=== PATIENT | female | born 1930 | race Caucasian/White ===

== ENCOUNTER 2019-07-30 12:34 | Outpatient (CLI) | payer MEDICARE, OTHER ==
--- NOTE | 2019-07-30 13:47 | RAD ---
AP PELVIS: HISTORY: Fall with injury. FINDINGS: The bony pelvis is intact. The hips appear intact. Degenerative changes at both hips are noted. IMPRESSION: No evidence of fracture. POS: OFF
== END 2019-07-30 12:35 | disposition home or self-care (01) ==
LOC: NAV RAD 12:34
PROVIDERS: ATTEND Internal Medicine
DX: R10.2 Pelvic and perineal pain (principal)
CPT/HCPCS: 72170

== ENCOUNTER 2021-06-14 12:56 | Inpatient (IN) | payer MEDICARE ==
[2021-06-14] MEDS ORDERED: ALPRAZolam 0.5 MG TAB PO SCH (21:00)
[2021-06-15 06:22] LABS: #Basophils 0.1 thou/uL (0.0-0.2); #Eosinphils 0.2 thou/uL (0.0-0.7); #Lymphocytes 1.2 thou/uL (1.20-3.40); #Monocytes 0.5 thou/uL (0.11-0.59); #Neutrophils 4.5 thou/uL (1.40-6.50); %Eosinophils 3.7 % (0.0-10.0); %Lymphocytes 18.9 % (21.0-51.0); %Monocytes 7.6 % (0.0-10.0); %Neutrophils 68.9 % (42.0-75.0); Hemoglobin 10.8 g/dL (12.0-16.0); Mean Corpuscular HGB CONC 30.9 g/dL (32.0-36.0); Mean Corpuscular Hemoglobin 28.4 pg (27.0-31.0); Mean Corpuscular Volume 91.7 fL (78.0-98.0); Mean Platelet Volume 7.8 fL (7.4-10.4); Platelet Count 323 thou/uL (130-400); RBC Distribution Width 12.3 % (11.5-14.5); Red Blood Cell (RBC) Count 3.79 mill/uL (4.20-5.40); White Blood Cell (WBC) Count 6.6 thou/uL (4.8-10.8)
[2021-06-15 06:38] LABS: Anion Gap 11 mmol/L (10-20); BUN (Urea Nitrogen) 12 mg/dL (9.8-20.1); Calc. Creatinine Clearance 46 mL/min (70-130); Calcium 9.3 mg/dL (7.8-10.44); Carbon Dioxide 26 mmol/L (23-31); Chloride 105 mmol/L (98-107); Glucose 113 mg/dL (83-110); Potassium 3.9 mmol/L (3.5-5.1); Sodium 138 mmol/L (136-145)
[2021-06-15] MEDS: Amlodipine 5 MG TAB PO SCH (09:21)
[2021-06-15] MEDS: Aspirin 81 mg Enteric Coated Tablet PO SCH (09:22)
[2021-06-15 16:29] LABS: SARS-CoV-2 PCR by NAA Not Detected (NotDetected)
[2021-06-15] MEDS: ALPRAZolam 0.25 MG TAB PO SCH (20:39)
[2021-06-16 07:42] LABS: #Basophils 0.1 thou/uL (0.0-0.2); #Eosinphils 0.2 thou/uL (0.0-0.7); #Lymphocytes 1.3 thou/uL (1.20-3.40); #Monocytes 0.6 thou/uL (0.11-0.59); #Neutrophils 4.6 thou/uL (1.40-6.50); %Basophils 0.8 % (0.0-1.0); %Lymphocytes 19.7 % (21.0-51.0); %Monocytes 8.1 % (0.0-10.0); %Neutrophils 68.5 % (42.0-75.0); ALT (SGPT) 12 U/L (8-55); AST (SGOT) 18 U/L (5-34); Albumin 3.7 g/dL (3.4-4.8); Alkaline Phosphatase 70 U/L (40-110); Anion Gap 12 mmol/L (10-20); BUN (Urea Nitrogen) 13 mg/dL (9.8-20.1); Bilirubin, Total 0.5 mg/dL (0.2-1.2); Calc. Creatinine Clearance 44 mL/min (70-130); Calcium 9.3 mg/dL (7.8-10.44); Carbon Dioxide 27 mmol/L (23-31); Chloride 105 mmol/L (98-107); Globulin 2.9 g/dL (2.4-3.5); Glucose 116 mg/dL (83-110); Mean Corpuscular HGB CONC 31.6 g/dL (32.0-36.0); Mean Corpuscular Hemoglobin 28.3 pg (27.0-31.0); Mean Corpuscular Volume 89.8 fL (78.0-98.0); Mean Platelet Volume 7.9 fL (7.4-10.4); Platelet Count 329 thou/uL (130-400); Protein, Total 6.6 g/dL (5.8-8.1); RBC Distribution Width 12.5 % (11.5-14.5); Red Blood Cell (RBC) Count 3.88 mill/uL (4.20-5.40); Sodium 140 mmol/L (136-145); White Blood Cell (WBC) Count 6.7 thou/uL (4.8-10.8)
[2021-06-16] MEDS: Amlodipine 5 MG TAB PO SCH (08:45)
[2021-06-16] MEDS: Aspirin 81 mg Enteric Coated Tablet PO SCH (08:46)
[2021-06-16] MEDS ORDERED: Aspirin 81 mg Enteric Coated Tablet PO SCH (09:00)
[2021-06-16] MEDS ORDERED: Non-Formulary Item 1 EACH (Amlodipine Besylate [Amlodipine Besylate] 2.5 MG Tablet) PO SCH (09:00)
[2021-06-16] MEDS ORDERED: Ondansetron ODT 4 MG TAB PO PRN (11:32)
[2021-06-16] MEDS ORDERED: Ondansetron ODT 4 MG TAB PO SCH (11:45)
[2021-06-16] MEDS: ALPRAZolam 0.25 MG TAB PO SCH (20:15)
[2021-06-17] MEDS: Amlodipine 5 MG TAB PO SCH (08:52)
[2021-06-17] MEDS: Aspirin 81 mg Enteric Coated Tablet PO SCH (08:52)
[2021-06-17] MEDS ORDERED: Metoclopramide 10 MG/10 ML UDCUP PO SCH (09:30)
[2021-06-17] MEDS: ALPRAZolam 0.25 MG TAB PO SCH (21:02)
[2021-06-18] MEDS: Metoclopramide 10 MG/10 ML UDCUP PO SCH (08:36)
[2021-06-18] MEDS: Aspirin 81 mg Enteric Coated Tablet PO SCH (08:37)
[2021-06-18] MEDS: Amlodipine 5 MG TAB PO SCH (08:37)
[2021-06-18] MEDS: ALPRAZolam 0.25 MG TAB PO SCH (20:22)
[2021-06-19] MEDS: Metoclopramide 10 MG/10 ML UDCUP PO SCH ×2 (08:15→20:19)
[2021-06-19] MEDS: Amlodipine 5 MG TAB PO SCH (08:15)
[2021-06-19] MEDS: Aspirin 81 mg Enteric Coated Tablet PO SCH (08:15)
[2021-06-19 10:06] VITALS: BMI 17.4
[2021-06-19] MEDS: ALPRAZolam 0.25 MG TAB PO SCH (20:20)
[2021-06-20] MEDS: Amlodipine 5 MG TAB PO SCH (08:26)
[2021-06-20] MEDS: Aspirin 81 mg Enteric Coated Tablet PO SCH (08:28)
[2021-06-20] MEDS: Metoclopramide 10 MG/10 ML UDCUP PO SCH ×2 (08:28→20:15)
[2021-06-20] MEDS: ALPRAZolam 0.25 MG TAB PO SCH (20:15)
[2021-06-21 08:04] VITALS: BP 129/63; TEMP 96.4
[2021-06-21] MEDS: Aspirin 81 mg Enteric Coated Tablet PO SCH (08:29)
[2021-06-21] MEDS: Amlodipine 5 MG TAB PO SCH (08:29)
[2021-06-21] MEDS: Metoclopramide 10 MG/10 ML UDCUP PO SCH (08:30)
== END 2021-06-21 12:24 | disposition home or self-care (01) | DRG 948 ==
LOC: NAV ACUTE 15:19
PROVIDERS: ADMIT Internal Medicine; ATTEND Internal Medicine
DX: R53.81 Other malaise (principal); Z68.1 Body mass index [BMI] 19.9 or less, adult; E44.1 Mild protein-calorie malnutrition; K44.9 Diaphragmatic hernia without obstruction or gangrene; I10 Essential (primary) hypertension; Z20.822 Contact with and (suspected) exposure to COVID-19; F41.9 Anxiety disorder, unspecified; K21.9 Gastro-esophageal reflux disease without esophagitis; Q43.0 Meckel's diverticulum (displaced) (hypertrophic)
CPT/HCPCS: 36415; 80048; 80053; 85025; Q0162; U0003; U0005